=== PATIENT | male | born 1965 | race Caucasian/White ===

== ENCOUNTER 2017-01-06 07:48 | Day surgery (SDC) | payer BC ==
[2017-01-06] MEDS ORDERED: D5 LR 1000 ML 1,000 ML IV ONE (07:55)
--- NOTE | 2017-01-06 10:42 | OR.GENERIC ---
Post-Op Note Generic - Post-Op Note Operative Report: Procedure Note January 06, 2017 Pre-Operative Diagnosis: Screening colonoscopy. Post-Operative Diagnosis: Rectal polyp x 2 (likely hyperplastic). Procedure: Colonoscopy to cecum with biopsy (cold biopsy forceps). Surgeon: Rohit Connelly MD Supplemental Nurse: Petrona Okeefe CRNA Specimens: Rectal polyps x 2. Estimated blood loss: Minimal. Complications: None. Summary: The patient is a 51 year old female who presented for a screening colonoscopy. The risk and benefits of the procedure including difficulty with anesthesia, bleeding, infection, as well as perforation were discussed with the patient. The patient understood these risks and requested the procedure. On January 06, 2017, the patient was brought to the endoscopy suite. A time out was performed verifying the patient and procedure. The patient was placed in a left lateral decubitus position. After satisfactory induction of monitored anesthesia care, a rectal exam was performed. The prostate was diffusely enlarged but no nodularity palpated. Next, an endoscopy was advanced through the anus and directed to the cecum without difficulty. The scope was then withdrawn viewing all mucosal surfaces. The patients prep was adequate. The cecum, ascending, transverse, descending, as well as sigmoid portions of the colon were normal. Specifically, there were no masses, polyps, or diverticula. The scope was withdrawn into the rectum. A few small polyps were seen in the proximal rectum. These appeared to be hyperplastic polyps. The polyps were biopsied using cold biopsy forceps and sent to pathology. The scope was retroflexed. No other pathology was seen. The scope was straightened and insufflation evacuated. The scope was withdrawn and the procedure terminated. The patient was taken to the recovery room in stable condition. There were no complications.
[2017-01-06 11:05] VITALS: BP 119/56
[2017-01-06] MEDS ORDERED: DIPRIVAN VIAL ONE (14:22)
== END 2017-01-06 11:05 | disposition home or self-care (01) ==
LOC: SURG1 07:48
PROVIDERS: ATTEND Student in an Organized Health Care Education/Training Program
PROC: 0DBP8ZX Excision of Rectum, Via Natural or Artificial Opening Endoscopic, Diagnostic (ICD-10-PCS; principal; 2017-01-06 11:00)
DX: Z12.11 Encounter for screening for malignant neoplasm of colon (principal); K62.1 Rectal polyp
CPT/HCPCS: A4217; J3490; J7120